=== PATIENT | female | born 1990 | race Caucasian/White ===

== ENCOUNTER → 2016-11-06 | Outpatient (CLI) | payer BC ==
[~2016-11-06] MED LIST: DROS3TAB12 PO; GLC/500 PO
== END | disposition home or self-care (01) ==
LOC: C.PAPS 10:56
PROVIDERS: ATTEND Obstetrics & Gynecology
DX: Z01.419 Encounter for gynecological examination (general) (routine) without abnormal findings (principal)

== ENCOUNTER → 2017-04-29 | Outpatient (CLI) | payer BC ==
[2017-04-29 18:12] LABS: BLOOD UREA NITROGEN 12 mg/dl (7-18); BUN/CREATININE RATIO 17.2 (10-20); CALCIUM 9.1 mg/dl (8.5-10.1); CARBON DIOXIDE 28 mmol/L (21-32); CHLORIDE 110 mmol/L (98-107); CHOLESTEROL 161 mg/dl (0-200); CREATININE 0.67 mg/dl (0.60-1.20); GLUCOSE 94 mg/dl (70-99); POTASSIUM 4.1 mmol/L (3.5-5.1); SODIUM 141 mmol/L (136-145); TRIGLYCERIDES 40 mg/dl (0-150); VERY LOW DENSITY LIPOPROT CALC 8 mg/dl
[2017-04-29 18:15] LABS: CHOLESTEROL/HDL RATIO 4.7; HDL CHOLESTEROL 34 mg/dl; LDL CHOLESTEROL CALCULATED 119 mg/dl
== END | disposition home or self-care (01) ==
LOC: C.LABPVFM 13:15
PROVIDERS: ATTEND Family Medicine
DX: Z00.00 Encounter for general adult medical examination without abnormal findings (principal); Z13.220 Encounter for screening for lipoid disorders; Z13.1 Encounter for screening for diabetes mellitus

== ENCOUNTER → 2017-12-20 | Outpatient (CLI) | payer BC | END | disposition home or self-care (01) | LOC: C.LABSPEC 17:42 | PROVIDERS: ATTEND Obstetrics & Gynecology | DX: Z11.3 Encounter for screening for infections with a predominantly sexual mode of transmission (principal) ==

== ENCOUNTER → 2018-05-16 | Outpatient (CLI) | payer BC | END | disposition home or self-care (01) | LOC: C.LABPVFM 16:05 | PROVIDERS: ATTEND Nurse Practitioner | DX: Z00.00 Encounter for general adult medical examination without abnormal findings (principal) ==

== ENCOUNTER 2019-05-01 20:27 | Inpatient (IN) ==
[2019-05-01] MEDS ORDERED: OXYTOCIN 30 UNITS/500 ML BAG IV PRN ×2 (20:37)
--- NOTE | 2019-05-01 20:42 | History & Physical Report ---
Date of Service May 01, 2019 Assessment & Plan (1) PROM (premature rupture of membranes): IOL with pitocin given already ruptured but not in active labor. GBS neg. Will check FSBG now. Present on Admission?: Yes History of Present Illness Primary Care Provider: Riana Cardona MD 28yo at 40+ wks, with PROM at home at 1815 tonight, no organized ctx yet, no VB and good FM. Preg c/b diet controlled GDM. 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 Allergies Allergy/AdvReac Type Severity Reaction Status Date / Time Sulfa (Sulfonamide Allergy Unknown HAPPENED Verified 05/01/19 11:36 Antibiotics) A CHILD metronidazole AdvReac Intermediate CAUSED Verified 05/01/19 11:36 SEVERE REDDENED IRRITATION TO VAGINA Home Medications Home Medications Medication Instructions Recorded Confirmed Type PNV cmb#95-ferrous fumarate-FA 1 tab PO DAILY 09/21/18 05/01/19 History [] valacyclovir 500 mg tablet 500 mg PO DAILY 04/21/19 05/01/19 History acetone (urine) test strips #25 ea 04/24/19 05/01/19 Rx blood sugar diagnostic strips #10 ea 04/24/19 05/01/19 Rx Patient History Medical History Kidney stone (Acute) Renal colic on right side (Resolved) Pyelonephritis (Acute) Ureteral colic (Acute) Threatened in first trimester (Inactive) PCOS (polycystic ovarian syndrome) Surgical History S/P wisdom tooth extraction Family History Mother Depression Hypertension Thyroid disease Father Diabetes Grandmother (Paternal) Kidney stone Other Drinking problem No significant family history Social History Preferred Language: [place] Citizen Communication Ability: Effective Current Living Situation: Family Feels Safe at Home: Yes Smoking Status: Former smoker Review of Systems All systems reviewed & are unremarkable except as noted in HPI & below Physical Exam Constitutional: WD/WN, vitals as above Eyes: PERRL, conjunctivae normal, anicteric sclerae ENMT: external ear and nose normal, oropharynx normal Neck: supple Respiratory: normal respiratory effort and able to speak in complete sentences; no respiratory distress Cardiovascular: Rate/Rhythm: regular rate and regular rhythm Gastrointestinal (Abdomen): Gravid / AGA, nontender Musculoskeletal: no cyanosis or clubbing, extremities motor strength 5/5 Skin: no rashes, warm and dry Neurologic: patellar DTR's 2+ bilat, sensation intact Psychiatric: A+Ox3, euthymic affect Genitourinary: Speculum/Bimanual Exam: no vaginal lesions, no vaginal bleeding and uterus nontender OB Exam Abdomen: + vertex, + estimated weight (7) and + regular contractions (Q3) Manual OB Exam: + cervical dilation 2 cm, + cervical effacement 50%, + station -2 and + amniotic fluid clear and nitrazine positive OB Exam Monitor Tracing: + external FHT monitor used, + external uterine monitor used and + category I Lymphatic: no cervical or axillary lymphadenopathy
[2019-05-01 21:02] LABS: Hematocrit (blood only) 37.9 % (37-47); Hemoglobin 13.1 g/dL (12.0-16.0); Mean Corpuscular Volume 93.8 fL (80-100); Mean Platelet Volume 10.5 fL (7.4-10.4); Platelet Count 202 K/uL (130-400); RDW Coefficient of Variation 13.8 % (11.5-14.5); RDW Standard Deviation 47.2 fL (36.4-46.3); Red Blood Count 4.04 M/uL (4.2-5.4); White Blood Count 10.96 K/uL (4.8-10.8)
[2019-05-01 21:04] LABS: Mean Corpuscular Hgb Conc 34.6 g/dL (32-36)
[2019-05-01 21:34] LABS: Albumin Level 3.1 gm/dl (3.4-5.0); BUN Creatinine Ratio 18.5 (10-20); Calcium 9.2 mg/dl (8.5-10.1); Est GFR (African American) 144.4; Est GFR (Non-African American) 124.6; Potassium 3.7 mmol/L (3.5-5.1)
[2019-05-01 21:37] LABS: Albumin Globulin Ratio 0.9 (0.9-2); Bilirubin,Total 0.1 mg/dl (0.2-1); Globulin 3.6 gm/dl (2.5-4.0); Total Protein 6.7 gm/dl (6.4-8.2)
[2019-05-01] MEDS: LACTATED RINGER'S 1,000 ML IV PRN (21:54)
--- NOTE | 2019-05-01 22:01 | Labor Progress Brief Note ---
Date of Service May 01, 2019 Subjective Comfortable. No PIH s/sx. Assessment & Plan (1) Elevated blood pressure affecting in third trimester, antepartum: Labor and delivery over-full with patients and this patient had to be triaged in small exam room on arrival. She had severe systolic BP on admission without any s/sx of preeclampsia. She has now been moved to a true L&D room where IV antihypertensives could more safely be used, but now her BP has improved to mild range. She feels her earlier pressures were due to stress. Labs done and show no evidence of preeclampsia. Will be induced for PROM so we are moving towards delivery. Will continue to observe for now. Present on Admission?: Yes Physical Exam Physical Exam: Patient moved to LD5 from triage exam room. Results & Data Vital Signs (Past 12 Hours) Vital Signs Temp Pulse Resp BP 05/01/19 21:43 95 H 143/89 H 05/01/19 21:42 98.2 F 18 05/01/19 21:00 98.6 F 96 H 18 172/94 H 05/01/19 20:42 99 H 173/88 H Laboratory Results Laboratory Results - last 24 hr 05/01/19 05/01/19 20:48 20:52 WBC 10.96 H RBC 4.04 L Hgb 13.1 Hct 37.9 MCV 93.8 MCH 32.4 MCHC 34.6 RDW Std Deviation 47.2 H RDW Coeff of Jovita 13.8 Plt Count 202 MPV 10.5 H Sodium 139 Potassium 3.7 Chloride 108 H Carbon Dioxide 22 Anion Gap 9.0 BUN 11 Creatinine 0.58 L Est Cr Clr Drug Dosing 158.0 Est GFR ( Amer) 144.4 Est GFR (Non-Af Amer) 124.6 BUN/Creatinine Ratio 18.5 Glucose 147 H Calcium 9.2 Total Bilirubin 0.1 L AST 13 L ALT 17 Alkaline Phosphatase 170 H Total Protein 6.7 Albumin 3.1 L Globulin 3.6 Albumin/Globulin Ratio 0.9
[2019-05-02 00:10] LABS: Protein Creatinine Ratio Urine 0.4 (0-0.2); Total Protein Urine Random 51.5 mg/dl (0-11.9)
[2019-05-02] MEDS ORDERED: BUPIVACAINE 0.25% 30 ML VIAL ONE ×2 (02:41→08:50)
[2019-05-02] MEDS ORDERED: ePHEDrine sulfate 50 MG/ML AMP ONE (02:41)
[2019-05-02] MEDS ORDERED: fentaNYL citrate 100 MCG/2 ML VIAL ONE (02:42)
[2019-05-02] MEDS ORDERED: fentaNYL 2MCG/ML ROPIV 1.25MG/ML 100 ML BAG EPI ONE (02:42)
[2019-05-02] MEDS ORDERED: fentaNYL 2MCG/ML ROPIV 1.25MG/ML 100 ML BAG EPI PRN (02:56)
[2019-05-02] MEDS ORDERED: NALBUPHINE HCL INJ 10 MG/ML AMP IV PRN (02:56)
[2019-05-02] MEDS ORDERED: ONDANSETRON INJ 2 MG/ML 2 ML VIAL IV PRN (02:56)
[2019-05-02] MEDS ORDERED: NALOXONE HCL 0.4 MG/1 ML VIAL/CARP IV PRN (02:56)
[2019-05-02] MEDS ORDERED: ePHEDrine sulfate 50 MG/ML AMP IV PRN (02:56)
[2019-05-02] MEDS ORDERED: NALOXONE HCL 1 MG in SODIUM CHLORIDE 0.9% 1000ML 1,000 ML IV PRN (02:56)
[2019-05-02] MEDS ORDERED: DiphenhydrAMINE HCL 50 MG/ML VIAL IV PRN (02:56)
--- NOTE | 2019-05-02 02:56 | Anesthesiology Consultation ---
Date of Service May 02, 2019 Assessment & Plan (1) Encounter for pre-operative examination: Chart Review Chart Review: Patient NOT seen in Pre Admission Testing and Acceptable Risk for Labor Epidural Consults Requested none ASA ASA2 Proposed Anesthesia Anesthesia Type: Labor Epidural Risk / Benefits Reviewed With: PT / POA / Parent / Guardian, Accepts Plan and Informed Consent Obtained History Height/Weight Height: 5 ft 5 in Weight: 89.358 kg Allergies Allergy/AdvReac Type Severity Reaction Status Date / Time Sulfa (Sulfonamide Allergy Unknown HAPPENED Verified 05/01/19 11:36 Antibiotics) A CHILD metronidazole AdvReac Intermediate CAUSED Verified 05/01/19 11:36 SEVERE REDDENED IRRITATION TO VAGINA Medications Home Medications Medication Instructions Recorded Confirmed Last Taken PNV cmb#95-ferrous fumarate-FA 1 tab PO DAILY 09/21/18 05/01/19 04/30/19 21:00 [] valacyclovir 500 mg tablet 500 mg PO DAILY 04/21/19 05/01/19 05/01/19 08:00 Active Medications Generic Name Dose Route Start Last Admin Trade Name Freq PRN Reason Stop Dose Admin Oxytocin 30 units in 500 mls @ 7 mls/hr 05/01/19 20:37 05/02/19 01:00 Pitocin IV 05/03/19 20:36 0.42 units/hr .Q24H PRN 7 mls/hr Labor Induction/Augmentation Titration Protocol 0.42 UNITS/HR Lactated Ringer's 1,000 mls @ 125 mls/hr 05/01/19 20:37 05/02/19 00:00 Lr IV 05/03/19 20:36 125 mls/hr .Q8H PRN Infusion L&D Protocol Protocol NPO Date Last Intake of Fluids: 05/02/19 Time Last Intake of Fluids: 02:53 Date Last Intake of Solids: 05/01/19 Time Last Intake of Solids: 19:00 Past Medical History Medical History Kidney stone (Acute) Renal colic on right side (Resolved) Pyelonephritis (Acute) Ureteral colic (Acute) Threatened in first trimester (Inactive) PCOS (polycystic ovarian syndrome) Exercise / Class Metabolic Activity II 4-5 Yardwork/Stairs/Walk up hill Past Family History Family History Mother Depression Hypertension Thyroid disease Father Diabetes Grandmother (Paternal) Kidney stone Other Drinking problem No significant family history Past Surgical History Surgical History S/P wisdom tooth extraction Past Anesthesia History No Hx of Anesthesia Complications History of PONV No Hx of PONV and No Hx of Motion Sickness Social History Smoking Status: Former smoker tobacco type: cigarettes Smoking cigarettes per day: 40 Do You Dip or Chew Tobacco: No Smoking End Date: 2017 Hx Alcohol Use: No Hx Substance Use: No Review of Systems Patient denies history of abnormal bleeding or bleeding disorder. Patient denies active use of anticoagulants other than low dose aspirin. Patient denies numbness, tingling or weakness in lower extremities. Patient denies active symptoms of GERD. Negative for chest pain or shortness of breath. Physical Exam Vital Signs Last Vital Signs Temp 36.8 C 05/02/19 02:00 Pulse 78 05/02/19 02:21 Resp 18 05/02/19 02:00 BP 179/101 H 05/02/19 02:21 Constitutional not obese gravid uterus ENMT Mouth: no TMJ abnormality and oral opening not small Thyromental Distance: > or= 3.5 Finger Breadths Mallampati Class: II Neck normal visual inspection; neck extension not limited Respiratory normal respiratory effort Auscultation: lungs clear to auscultation bilaterally Cardiovascular Rate/Rhythm: regular rate and regular rhythm Heart Sounds: no murmur Neurologic moves all extremities Motor/Sensory: no sensory deficit Psychiatric Orientation: alert and oriented x 3 Testing Laboratory Results 05/01/19 20:48 05/01/19 20:52 05/01/19 21:49 POC Glucose 94
[2019-05-02] MEDS: LACTATED RINGER'S 1,000 ML IV PRN ×2 (03:00→07:16)
--- NOTE | 2019-05-02 07:06 | Labor Progress Brief Note ---
Date of Service May 02, 2019 Subjective Reason For Note: Routine Evaluation Comfortable with Epidural Assessment & Plan (1) PROM (premature rupture of membranes): Delayed note from 0630 visit. Progress occurring. Pit at 3, per RN was 7 but was decreased due to hyperstim. Currently Q3.5 to 4.5min, encouraged upward titration of pitocin. Present on Admission?: Yes Physical Exam Genitourinary: Manual OB Exam: + cervical dilation 4 cm, + cervical effacement 100% and + station 0 OB Exam Monitor Tracing: + category I Results & Data Vital Signs (Past 12 Hours) Vital Signs Temp Pulse Resp BP Pulse Ox 05/02/19 06:59 93 H 97 05/02/19 06:54 93 H 147/96 H 97 05/02/19 06:49 82 97 05/02/19 06:44 96 H 97 05/02/19 06:41 90 158/85 H 05/02/19 06:39 84 97 05/02/19 06:34 82 98 05/02/19 06:29 99.0 F 85 18 99 05/02/19 06:24 100 H 131/66 97 05/02/19 06:19 97 H 95 05/02/19 06:14 99 H 96 05/02/19 06:09 100 H 95 05/02/19 06:08 96 H 132/65 05/02/19 06:04 100 H 93 05/02/19 05:59 99 H 94 05/02/19 05:54 98 H 96 05/02/19 05:53 95 H 128/73 05/02/19 05:49 101 H 94 05/02/19 05:44 104 H 97 05/02/19 05:40 94 H 122/64 05/02/19 05:39 100 H 96 05/02/19 05:34 96 H 96 05/02/19 05:29 99 H 93 05/02/19 05:24 100 H 95 05/02/19 05:23 99 H 132/70 05/02/19 05:19 97 H 94 05/02/19 05:14 99 H 94 05/02/19 05:13 92 H 94 05/02/19 05:09 94 H 120/68 97 05/02/19 05:07 98 H 93 05/02/19 05:04 100 H 95 05/02/19 05:01 103 H 93 05/02/19 04:59 94 H 95 05/02/19 04:54 111 H 120/70 99 05/02/19 04:49 100 H 96 05/02/19 04:46 98 H 94 05/02/19 04:44 99 H 97 05/02/19 04:39 92 H 98 05/02/19 04:38 103 H 116/72 05/02/19 04:34 96 H 97 05/02/19 04:29 100 H 99 05/02/19 04:24 97 H 100 05/02/19 04:23 97 H 120/73 05/02/19 04:19 86 97 05/02/19 04:14 79 99 05/02/19 04:09 96 H 99 05/02/19 04:08 80 128/71 05/02/19 04:04 80 98 05/02/19 03:59 91 H 99 05/02/19 03:54 81 99 05/02/19 03:52 90 116/67 05/02/19 03:49 98.4 F 89 18 96 05/02/19 03:47 88 115/67 05/02/19 03:44 93 H 99 05/02/19 03:41 84 136/74 05/02/19 03:39 98 H 100 05/02/19 03:36 96 H 150/88 H 05/02/19 03:34 94 H 99 05/02/19 03:33 95 H 142/86 H 05/02/19 03:29 98 H 98 05/02/19 03:27 73 145/83 H 05/02/19 03:24 98 H 100 05/02/19 03:21 74 146/86 H 05/02/19 03:19 84 98 05/02/19 03:17 78 139/84 05/02/19 03:14 85 99 05/02/19 03:12 64 143/82 H 05/02/19 03:09 69 97 05/02/19 03:06 95 H 176/98 H 05/02/19 03:04 96 H 97 05/02/19 03:01 87 187/101 H 05/02/19 02:59 90 99 05/02/19 02:54 76 99 05/02/19 02:21 78 179/101 H 05/02/19 02:00 98.2 F 18 08/06/19 00:33 98.4 F 18 05/02/19 00:20 91 H 145/86 H 05/01/19 23:50 98 H 136/71 05/01/19 23:21 99 H 157/73 H 05/01/19 23:12 88 184/97 H 05/01/19 22:49 97.7 F 99 H 18 140/87 05/01/19 22:12 97 H 156/98 H 05/01/19 22:11 100 H 189/98 H 05/01/19 21:58 101 H 154/94 H 05/01/19 21:43 95 H 143/89 H 05/01/19 21:42 98.2 F 18 05/01/19 21:00 98.6 F 96 H 18 172/94 H 05/01/19 20:42 99 H 173/88 H
--- NOTE | 2019-05-02 12:22 | Delivery Summary ---
Vaginal Delivery Summary Date of Service May 02, 2019 Vaginal Delivery Summary Vaginal Delivery Summary: Pre-delivery diagnoses: 28yo @ 40 5/7, PROM, GDMA1, HSV Post-delivery diagnoses: same Procedure: spontaneous vaginal delivery, repair of 2nd degree perineal lac eration Surgeon: Lora Brooks DO Complications: none Findings: Viable female . Apgars: 8/9. Weight pending, please see nursery records Estimated blood loss: 300ml Description of delivery: The patient progressed to complete with epidural anesthesia. She then began to push. She spontaneously vaginally delivered a viable from the cephalic presentation. The head delivered in BRITTNY position. The anterior shoulder delivered, followed by the posterior shoulder, followed by the body. No nuchal cord was noted. The baby was placed on mother's abdomen and a spontaneous cry was heard. Delayed cord clamping was employed, and the cord was doubly clamped and cut. Cord blood was obtained. The placenta was delivered spontaneously intact with a 3-vessel cord. The uterus and vagina were swept of clots and debris. IV pitocin was given. The uterus became firm. The cervix, vagina, and perineum were inspected and a 2nd degree laceration was noted and repaired in standard fashion with 3-0 Vicryl. Excellent hemostasis was observed. The mother and baby are recovering in stable and good condition in the room. Sponge, needle, and instrument counts were correct x 2. DO FRANKY Verma
[2019-05-02] MEDS ORDERED: DIPHTHERIA/TETANUS/PERTUSSIS 0.5 ML SYR/VIAL IM ONE (12:52)
[2019-05-02] MEDS ORDERED: OXYTOCIN 30 UNITS/500 ML BAG IV PRN (12:52)
[2019-05-02] MEDS ORDERED: BENZOCAINE 20% AER SPR 82.5 GM CAN EXT PRN (12:52)
[2019-05-02] MEDS ORDERED: BISACODYL 10 MG SUPP PR PRN (12:52)
[2019-05-02] MEDS ORDERED: HYDROCORTISONE ACETATE 25 MG SUPP PR PRN (12:52)
[2019-05-02] MEDS ORDERED: SUPERCREAM 0.870% 15 GM JAR EXT PRN (12:52)
--- NOTE | 2019-05-02 13:47 | Anesthesia Procedure Note ---
Date of Service May 02, 2019 Anesthesia Post Epidural Note Vital Signs Vital Signs: Temp Pulse Resp BP Pulse Ox 36.8 C 90 18 149/81 H 99 05/02/19 13:07 05/02/19 13:38 05/02/19 13:07 05/02/19 13:38 05/02/19 11:51 Pain Intensity Abdomen: Pain Intensity: 7 Notes Mental Status: alert / awake / arousable and participated in evaluation Nausea / Vomiting: adequately controlled Pain: adequately controlled Airway Patency, RR, SpO2: stable & adequate BP & HR: stable & adequate Hydration State: stable & adequate Neuraxial Anesthesia: was administered and sensory block is resolving Anesthetic Complications: no major complications apparent Epidural: Removed without complications and With tip intact
[2019-05-02] MEDS: IBUPROFEN 600 MG TAB PO PRN (18:14)
[2019-05-02] MEDS: OXYCODONE/ACETAMINOPHEN 5mg/325mg TAB PO PRN (19:37)
[2019-05-02] MEDS: DOCUSATE SODIUM 100 MG CAP PO SCH (20:50)
[2019-05-03] MEDS: OXYCODONE/ACETAMINOPHEN 5mg/325mg TAB PO PRN ×3 (00:55→23:59)
[2019-05-03] MEDS: IBUPROFEN 600 MG TAB PO PRN ×5 (04:28→23:59)
[2019-05-03 06:32] LABS: Hematocrit (blood only) 32.9 % (37-47); Hemoglobin 11.3 g/dL (12.0-16.0); Mean Corpuscular Hgb Conc 34.3 g/dL (32-36); Mean Corpuscular Volume 95.4 fL (80-100); Mean Platelet Volume 10.4 fL (7.4-10.4); Platelet Count 157 K/uL (130-400); RDW Coefficient of Variation 14.1 % (11.5-14.5); RDW Standard Deviation 48.3 fL (36.4-46.3); Red Blood Count 3.45 M/uL (4.2-5.4); White Blood Count 13.95 K/uL (4.8-10.8)
[2019-05-03 07:08] LABS: Alanine Aminotransferase 16 U/L (12-78); Albumin Level 2.2 gm/dl (3.4-5.0); Aspartate Aminotransferase 26 U/L (15-37); BUN Creatinine Ratio 21.9 (10-20); Blood Urea Nitrogen 10 mg/dl (7-18); Calcium 8.4 mg/dl (8.5-10.1); Carbon Dioxide 24 mmol/L (21-32); Chloride 110 mmol/L (98-107); Creatinine Clr Calc Pharmacy 190.9 ml/min; Est GFR (African American) > 150.0; Est GFR (Non-African American) 132.6; Glucose 90 mg/dl (70-99); Potassium 3.6 mmol/L (3.5-5.1); Sodium 141 mmol/L (136-145)
[2019-05-03 07:16] LABS: Albumin Globulin Ratio 0.7 (0.9-2); Alkaline Phosphatase 132 U/L (45-117); Bilirubin,Total 0.2 mg/dl (0.2-1); Total Protein 5.2 gm/dl (6.4-8.2)
--- NOTE | 2019-05-03 07:18 | Obstetrical Progress Note ---
Date of Service <Enedina Santacruz MD - Last Filed: 05/03/19 07:17> May 03, 2019 Assessment & Plan <Enedina Santacruz MD - Last Filed: 05/03/19 07:17> (1) Encounter for care and examination after delivery: Doing well this morning. Encouraged continued ambulation, PO diet and fluid intake. Continue monitoring vitals and Hg. Consider discharge tomorrow. Subjective <Enedina Santacruz MD - Last Filed: 05/03/19 07:17> Ambulation: ambulating normally Voiding: no voiding problems Passing Gas:: Yes Diet Tolerance:: regular diet Feeding Type:: breast feeding Current Pain Level(1-10): 0 Constitutional: no fever, no chills and no fatigue Respiratory: no cough and no dyspnea No shortness of breath Cardiovascular: + edema; no chest pain, no syncope and no calf pain Breast: no breast pain Gastrointestinal: + cramping; no abdominal pain, no nausea, no vomiting, no constipation and no diarrhea/loose stools Genitourinary (female): no dysuria and no difficulty urinating Neurologic: no headache(s) Physical Exam <Enedina Santacruz MD - Last Filed: 05/03/19 07:17> Constitutional well developed and well nourished Respiratory normal respiratory effort; no respiratory distress, no labored breathing and no cough Auscultation: no crackles, no rales, no rhonchi and no wheezes Cardiovascular Rate/Rhythm: regular rate and regular rhythm Heart Sounds: no gallop, no murmur and no cardiac rub Extremities: + pedal edema Gastrointestinal (Abdomen) Inspection/Auscultation: + abdomen distended and normal bowel sounds Percussion/Palpation: + abdomen tender and abdomen soft; no guarding Genitourinary Uterus firm, palpable at umbilicus, some tenderness to palpation. Results & Data <Enedina Santacruz MD - Last Filed: 05/03/19 07:17> Vital Signs (Past 12 Hours) Vital Signs Temp Pulse Resp BP Pulse Ox 05/03/19 04:15 36.9 C 88 18 127/77 05/03/19 00:30 37.0 C 86 20 138/74 05/02/19 20:45 37.0 C 101 H 20 148/84 H 100 <Lora Brooks DO - Last Filed: 05/03/19 07:39> Co-Signing Physician Notes Resident Physician Supervision Note: I interviewed and examined the patient. Discussed with Dr. Santacruz and agree with findings and plan as documented in the note. Any exceptions or clarifications are listed here: PPD#1 doing well. Anticipate DC tomorrow. Documented By: Lora Brooks,
[2019-05-03] MEDS: PRENATAL VITAMIN 1 TAB PO SCH (08:42)
[2019-05-03] MEDS: DOCUSATE SODIUM 100 MG CAP PO SCH ×2 (08:42→21:21)
[2019-05-03] MEDS: ACETAMINOPHEN 325 MG TAB PO PRN ×2 (12:41→16:45)
[2019-05-03] MEDS ORDERED: BISACODYL 5 MG TABEC PO SCH (20:00)
--- NOTE | 2019-05-04 07:07 | Obstetrical Progress Note ---
Date of Service <Enedina Sanatcruz MD - Last Filed: 05/04/19 07:07> May 04, 2019 Assessment & Plan <Enedina Santacruz MD - Last Filed: 05/04/19 07:07> (1) Encounter for care and examination after delivery: Doing well overall, Discussed discharge planning, signs to look for and reasons to call office. Patient understands she will not be sent home with script for opioids, counselled her to schedule alternating tylenol/motrin at home to get better control of pain and get ahead of breakthrough pain. Blood pressure has been running high in 150's/90's during stay but has not had any red flag or warning signs. Could be secondary or exacerbated by uncontrolled pain. Discharge later today. Subjective <Enedina Santacruz MD - Last Filed: 05/04/19 07:07> Ambulation: ambulating normally Voiding: no voiding problems Passing Gas:: Yes Diet Tolerance:: regular diet Feeding Type:: breast feeding Current Pain Level(1-10): 7 Cramping/abdominal pain at 7 when not taking medication, reduced to 0 with percocet, reduced to 4 with motrin/tylenol. Constitutional: + fatigue; no fever and no chills Respiratory: no cough and no dyspnea No shortness of breath Cardiovascular: + edema; no chest pain, no syncope and no calf pain Breast: no breast pain Gastrointestinal: + cramping; no abdominal pain, no nausea, no vomiting, no constipation and no diarrhea/loose stools Genitourinary (female): no dysuria and no difficulty urinating Neurologic: no headache(s) Physical Exam <Enedina Santacruz MD - Last Filed: 05/04/19 07:07> Constitutional well developed and well nourished Respiratory normal respiratory effort; no respiratory distress, no labored breathing and no cough Auscultation: no crackles, no rales, no rhonchi and no wheezes Cardiovascular Rate/Rhythm: regular rate and regular rhythm Heart Sounds: no gallop, no murmur and no cardiac rub Extremities: + pedal edema Gastrointestinal (Abdomen) Inspection/Auscultation: + abdomen distended and normal bowel sounds Percussion/Palpation: + abdomen tender and abdomen soft; no guarding Genitourinary Uterus firm, palpable at umbilicus, some tenderness to palpation. Results & Data <Enedina Santacruz MD - Last Filed: 05/04/19 07:07> Vital Signs (Past 12 Hours) Vital Signs Temp Pulse Resp BP 05/04/19 00:00 36.7 C 80 18 152/93 H 05/03/19 20:00 36.7 C 80 18 152/93 H Blood pressure has been consistently high during stay. Pt says pain breaks through and has not been adequately controlled since she has not been taking medication on a regimen. No red flag symptoms (headaches, blurring or changes in vision, lightheadedness). <Kaya Alcocer MD, FACOG - Last Filed: 05/04/19 08:27> Co-Signing Physician Notes Resident Physician Supervision Note: I interviewed and examined the patient. Discussed with Dr. Santacruz and agree with findings and plan as documented in the note. Any exceptions or clarifications are listed here: [None] Documented By: Kaya Alcocer MD, FACOG
[2019-05-04 08:02] LABS: Hemoglobin 10.7 g/dL (12.0-16.0)
[2019-05-04] MEDS: DOCUSATE SODIUM 100 MG CAP PO SCH (08:30)
[2019-05-04] MEDS: IBUPROFEN 600 MG TAB PO PRN (08:31)
[2019-05-04] MEDS: PRENATAL VITAMIN 1 TAB PO SCH (08:31)
[2019-05-04] MEDS: OXYCODONE/ACETAMINOPHEN 5mg/325mg TAB PO PRN (08:31)
== END 2019-05-04 13:30 | disposition home or self-care (01) | DRG 806 ==
LOC: OPB 20:27 → 4S1 20:28 → 4S2 05-02 15:28